=== PATIENT | male | born 1960 | race African-American/Black ===

== ENCOUNTER 2016-08-31 10:39 | Inpatient (IN) | payer OTHER ==
[2016-08-31 10:56] VITALS: BMI 23.1
--- NOTE | 2016-08-31 11:47 | HP ---
CIWA Score - CIWA Score Nausea/Vomitin-Mild Nausea/No Vomiting Muscle Tremors: 4-Moderate,w/Arms Extend Anxiety: 4-Mod. Anxious/Guarded Agitation: 1-Slight > Activity Paroxysmal Sweats: 1-Minimal Palms Moist Orientation: 0-Oriented Tacttile Disturbances: 1-Very Mild Itch/Numbness Auditory Disturbances: 1-Very Mild Visual Disturbances: 1-Very Mild Sensitivity Headache: 1-Very Mild CIWA-Ar Total Score: 15 Admission ROS BHS - HPI Chief Complaint: I'm tired, I can't stop on my own Allergies/Adverse Reactions: Allergies Allergy/AdvReac Type Severity Reaction Status Date / Time No Known Allergies Allergy Verified 08/31/16 12:35 History of Present Illness: 55 yo gentleman here for detox from alcohol - last here march 2016. No seizures but does have black outs. Exam Limitations: Clinical Condition - Ebola screening Have you traveled outside of the country in the last 21 days: No Have you had contact with anyone from an Ebola affected area: No Have you been sick,other than usual withdrawal symptoms: No Do you have a fever: No - Review of Systems Constitutional: Loss of Appetite, Night Sweats, Changes in sleep, Weakness, Unintentional Wgt. Loss EENT: reports: Blurred Vision Respiratory: reports: No Symptoms reported Cardiac: reports: No Symptoms Reported GI: reports: Nausea, Poor Appetite : reports: Frequency Musculoskeletal: reports: Back Pain, Muscle Pain Integumentary: reports: No Symptoms Reported Neuro: reports: Numbness, Tremors Endocrine: reports: No Symptoms Reported Hematology: reports: No Symptoms Reported Psychiatric: reports: Judgement Intact, Mood/Affect Appropiate, Orientated x3, Anxious Other Systems: Reviewed and Negative Patient History - Patient Medical History Hx Anemia: No Hx Asthma: No Hx Chronic Obstructive Pulmonary Disease (COPD): No Hx Cancer: No Hx Cardiac Disorders: No Hx Congestive Heart Failure: No Hx Hypertension: No Hx Hypercholesterolemia: No Hx Pacemaker: No HX Cerebrovascular Accident: No Hx Seizures: No Hx Dementia: No Hx Diabetes: No Hx Gastrointestinal Disorders: No Hx Liver Disease: No Hx Genitourinary Disorders: No Hx Sexually Transmitted Disorders: No Hx Renal Disease (ESRD): No Hx Thyroid Disease: No Hx Human Immunodeficiency Virus (HIV): No Hx Hepatitis C: No Hx Depression: No Hx Suicide Attempt: No Hx Bipolar Disorder: No Hx Schizophrenia: No - Patient Surgical History Past Surgical History: Yes Hx Neurologic Surgery: No Hx Cataract Extraction: No Hx Cardiac Surgery: No Hx Lung Surgery: No Hx Breast Surgery: No Hx Breast Biopsy: No Hx Abdominal Surgery: No Hx Appendectomy: Yes (at age 13 yrs) Hx Cholecystectomy: No Hx Genitourinary Surgery: No Hx Section: No Hx Orthopedic Surgery: No Hx Hysterectomy: No Other Surgical History: h/o rt leg fx Anesthesia Reaction: No - PPD History Date: 04/04/16 Results: 0 mm PPD to be Administered?: No - Reproductive History Patient is a Female of Child Bearing Age (11 -55 yrs old): No (male) - Smoking Cessation Smoking history: Current every day smoker Have you smoked in the past 12 months: Yes Aproximately how many cigarettes per day: 6 Cigars Per Day: 0 Hx Chewing Tobacco Use: No Initiated information on smoking cessation: Yes 'Breaking Loose' booklet given: 08/31/16 (give no floor) - Substance & Tx. History Hx Alcohol Use: Yes Hx Substance Use: Yes Substance Use Type: Alcohol, Cocaine Hx Substance Use Treatment: Yes (detox, rehab) - Substances Abused Alcohol Route: Oral Frequency: Daily Amount used: six pack 16 oz beers; 1 pint liquor Age of first use: 13 Date of Last Use: 08/31/16 Cocaine Route: Smoking Frequency: 1-3 times last 30 days Amount used: $50 Age of first use: 35 Date of Last Use: 08/30/16 Family Disease History - Family Disease History Family Disease History: Diabetes: Mother (alive, ), Brother (1 brother - etoh ) , Respiratory: Father (, ALCOHOLIC), Other: Father, Mother, Brother, Sister (1 sister - alive) Admission Physical Exam [facility] - Vital Signs Vital Signs: Vital Signs - 24 hr 08/31/16 10:54 Temperature 97.8 F Pulse Rate 81 Respiratory 20 Rate Blood Pressure 148/80 - Physical General Appearance: Yes: Nourished, Appropriately Dressed, Mild Distress, Tremorous HEENTM: Yes: Hearing grossly Normal, Normal ENT Inspection, Normocephalic, Normal Voice, Pharynx Normal Respiratory: Yes: Normal Breath Sounds, No Respiratory Distress Neck: Yes: No masses,lesions,Nodules, Supple Breast: Yes: Breast Exam Deferred Cardiology: Yes: Regular Rhythm, Regular Rate Abdominal: Yes: Soft Genitourinary: Yes: Frequency Back: Yes: Normal Inspection Musculoskeletal: Yes: full range of Motion, Gait Steady Extremities: Yes: Normal Inspection, Normal Range of Motion, Non-Tender Neurological: Yes: Fully Oriented, Alert, Normal Mood/Affect, Normal Response, Numbness Integumentary: Yes: Normal Color, Dry, Warm Lymphatic: Yes: Within Normal Limits - Diagnostic (1) Alcohol abuse with uncomplicated intoxication Current Visit: Yes Status: Chronic (2) Nicotine dependence Current Visit: Yes Status: Chronic Qualifiers: Nicotine product type: cigarettes Substance use status: uncomplicated Qualified Code(s): F17.210 - Nicotine dependence, cigarettes, uncomplicated (3) Osteoarthritis of hips, bilateral Current Visit: Yes Status: Chronic Qualifiers: Osteoarthritis type: unspecified Qualified Code(s): M16.0 - Bilateral primary osteoarthritis of hip Cleared for Admission [facility] - Detox or Rehab [facility] Level of Care: Medically Managed Detox Regimen/Protocol: Librium [facility] Breath Alcohol Content Breath Alcohol Content: 0 Urine Drug Screen - Results Drug Screen Negative: No Urine Drug Screen Results: JOHN-Cocaine
[2016-08-31] MEDS ORDERED: hydrOXYzine PAMOATE 50 MG CAPSULE (FP) PO PRN (11:52)
[2016-08-31] MEDS ORDERED: chlordiazePOXIDE HCL 25 MG CAPSULE PO PRN (11:52)
[2016-08-31] MEDS ORDERED: chlordiazePOXIDE HCL 25 MG CAPSULE PO ONE (11:52)
[2016-08-31] MEDS ORDERED: MAG HYDROX/AL HYDROX/SIMETH 30 ML UNIT-DOSE CUP PO PRN (11:52)
[2016-08-31] MEDS ORDERED: NICOTINE POLACRILEX 4 MG GUM BUC PRN (11:52)
[2016-08-31] MEDS ORDERED: ACETAMINOPHEN 325 MG TABLET (FP) PO PRN (11:52)
[2016-08-31] MEDS ORDERED: IBUPROFEN 400 MG TABLET (FP) PO PRN (11:52)
[2016-08-31] MEDS ORDERED: LOPERAMIDE HCL 2 MG CAPSULE PO PRN (11:52)
[2016-08-31] MEDS ORDERED: diphenhydrAMINE HCL 50 MG CAPSULE PO PRN (11:52)
[2016-08-31] MEDS ORDERED: MAGNESIUM HYDROX 2400MG/30ML ORAL SUSPENSION 30 ML CUP PO PRN (11:52)
[2016-08-31] MEDS ORDERED: MAGNESIUM CITRATE 300 ML BOTTLE PO PRN (11:52)
[2016-08-31] MEDS ORDERED: guaiFENesin/D-METHORPHAN HB 10 ML UNIT-DOSE CUPS PO PRN (11:52)
[2016-08-31] MEDS ORDERED: MENTHOL/PHENOL 1 EACH UD MM PRN (11:52)
[2016-08-31] MEDS ORDERED: P-EPHED 60MG/TRIPROLIDI 2.5MG TABLET PO PRN (11:52)
[2016-08-31 17:23] LABS: URINE APPEARANCE CLEAR; URINE BILIRUBIN NEGATIVE (NEGATIVE); URINE COLOR YELLOW; URINE GLUCOSE (UA) NEGATIVE (NEGATIVE); URINE KETONE TRACE (NEGATIVE); URINE LEUK ESTERASE NEGATIVE (NEGATIVE); URINE NITRITE NEGATIVE (NEGATIVE); URINE PROTEIN NEGATIVE (NEGATIVE); URINE UROBILINOGEN NEGATIVE E.U./dl (0.2-1.0)
[2016-08-31 17:24] LABS: URINE BLOOD 1+ (NEGATIVE)
[2016-08-31 17:26] LABS: URINE MUCUS RARE; URINE WBC 1 /hpf (3-5)
[2016-08-31] MEDS: chlordiazePOXIDE HCL 25 MG CAPSULE PO SCH ×2 (17:55→23:23)
[2016-08-31] MEDS: THIAMINE HCL 100 MG TABLET (FP) PO SCH (22:55)
[2016-09-01] MEDS: chlordiazePOXIDE HCL 25 MG CAPSULE PO SCH ×4 (05:50→22:23)
[2016-09-01] MEDS: PRENATAL VITAMINS W/ FOLIC ACID TABLET (FP) PO SCH (10:34)
[2016-09-01 10:46] LABS: MCH 29.2 pg (25.7-33.7); MCHC 32.8 g/dl (32.0-35.9); MEAN CELL VOLUME 88.9 fl (80-96); MEAN PLT VOLUME 9.6 fl (7.5-11.1); PLATELET COUNT 261 K/MM3 (134-434); RDW 13.9 % (11.9-15.9); WHITE BLOOD COUNT 11.4 K/mm3 (4.0-10.0)
[2016-09-01 11:06] LABS: ALBUMIN 3.4 g/dl (3.4-5.0); ANION GAP 8 (8-16); CALCIUM 8.9 mg/dL (8.5-10.1); CO2 29 mmol/L (21-32); GLUCOSE,RANDOM 81 mg/dL (74-106)
[2016-09-01 11:11] LABS: ALK PHOS 60 U/L (45-117); BILIRUBIN,TOTAL 1.3 mg/dL (0.2-1.0); COCKROFT - GAULT 107.09; CREATININE 0.9 mg/dL (0.7-1.3); SGOT/AST 14 U/L (15-37); SGPT/ALT 19 U/L (12-78); TOT PROT 6.8 g/dl (6.4-8.2)
[2016-09-01 12:07] LABS: HIV 1 & 2 AB NEGATIVE; HIV 1 AGp24 NEGATIVE
--- NOTE | 2016-09-01 12:42 | PN ---
S CIWA - CIWA Score Nausea/Vomitin Muscle Tremors: 3 Anxiety: 3 Agitation: 2 Paroxysmal Sweats: 1-Minimal Palms Moist Orientation: 0-Oriented Tacttile Disturbances: 1-Very Mild Itch/Numbness Auditory Disturbances: 1-Very Mild Visual Disturbances: 1-Very Mild Sensitivity Headache: 2-Mild CIWA-Ar Total Score: 17 BHS Progress Note (SOAP) Subjective: ALERT,IRRITABLE,ANXIOUS,INTERRUPTED SLEEP,TREMOR Objective: 09/01/16 12:40 Vital Signs Temperature 98.1 F 09/01/16 10:39 Pulse Rate 86 09/01/16 10:39 Respiratory Rate 16 09/01/16 10:39 Blood Pressure 141/68 09/01/16 10:39 O2 Sat by Pulse Oximetry (%) EKG SINUS BRADYCARDIA 56/MIN NO CHEST PAIN,NO SOB,NO DIZZINESS 09/01/16 12:41 Laboratory Last Values WBC 11.4 K/mm3 (4.0-10.0) H D 09/01/16 08:00 RBC 5.04 M/mm3 (4.00-5.60) 09/01/16 08:00 Hgb 14.7 GM/dL (11.7-16.9) 09/01/16 08:00 Hct 44.8 % (35.4-49) 09/01/16 08:00 MCV 88.9 fl (80-96) 09/01/16 08:00 MCHC 32.8 g/dl (32.0-35.9) 09/01/16 08:00 RDW 13.9 % (11.9-15.9) 09/01/16 08:00 Plt Count 261 K/MM3 (134-434) 09/01/16 08:00 MPV 9.6 fl (7.5-11.1) 09/01/16 08:00 Sodium 145 mmol/L (136-145) 09/01/16 08:00 Potassium 4.9 mmol/L (3.5-5.1) 09/01/16 08:00 Chloride 108 mmol/L (98-107) H 09/01/16 08:00 Carbon Dioxide 29 mmol/L (21-32) 09/01/16 08:00 Anion Gap 8 (8-16) 09/01/16 08:00 BUN 13 mg/dL (7-18) 09/01/16 08:00 Creatinine 0.9 mg/dL (0.7-1.3) 09/01/16 08:00 Creat Clearance w eGFR > 60 (>60) 09/01/16 08:00 Random Glucose 81 mg/dL (74-106) D 09/01/16 08:00 Calcium 8.9 mg/dL (8.5-10.1) 09/01/16 08:00 Total Bilirubin 1.3 mg/dL (0.2-1.0) H 09/01/16 08:00 AST 14 U/L (15-37) L D 09/01/16 08:00 ALT 19 U/L (12-78) D 09/01/16 08:00 Alkaline Phosphatase 60 U/L (45-117) 09/01/16 08:00 Total Protein 6.8 g/dl (6.4-8.2) 09/01/16 08:00 Albumin 3.4 g/dl (3.4-5.0) 09/01/16 08:00 Urine Color Yellow 08/31/16 17:09 Urine Appearance Clear 08/31/16 17:09 Urine pH 5.0 (5.0-8.0) 08/31/16 17:09 Ur Specific [place] 1.020 (1.001-1.035) 08/31/16 17:09 Urine Protein Negative (NEGATIVE) 08/31/16 17:09 Urine Glucose (UA) Negative (NEGATIVE) 08/31/16 17:09 Urine Ketones Trace (NEGATIVE) H 08/31/16 17:09 Urine Blood 1+ (NEGATIVE) H 08/31/16 17:09 Urine Nitrite Negative (NEGATIVE) 08/31/16 17:09 Urine Bilirubin Negative (NEGATIVE) 08/31/16 17:09 Urine Urobilinogen Negative E.U./dl (0.2-1.0) 08/31/16 17:09 Ur Leukocyte Esterase Negative (NEGATIVE) 08/31/16 17:09 Urine RBC None /hpf (0-3) 08/31/16 17:09 Urine WBC 1 /hpf (3-5) 08/31/16 17:09 Urine Mucus Rare 08/31/16 17:09 RPR Titer Nonreactive (NONREACTIVE) 09/01/16 08:00 HIV 1&2 Antibody Screen Negative 09/01/16 08:00 HIV P24 Antigen Negative 09/01/16 08:00 Assessment: 09/01/16 12:42 WITHDRAWAL SYMPTOM Plan: CONTINUE DETOX,ENCOURAGE ORAL FLUID
[2016-09-01] MEDS ORDERED: COLLOIDAL OATMEAL 1 BAR EACH TP PRN (15:01)
[2016-09-01] MEDS: THIAMINE HCL 100 MG TABLET (FP) PO SCH (22:23)
--- NOTE | 2016-09-02 08:46 | EKG ---
Test Reason : Blood Pressure : / mmHG Vent. Rate : 053 BPM Atrial Rate : 053 BPM P-R Int : 126 ms QRS Dur : 088 ms QT Int : 440 ms P-R-T Axes : 077 067 054 degrees QTc Int : 412 ms SINUS BRADYCARDIA SEPTAL INFARCT , AGE UNDETERMINED ABNORMAL ECG WHEN COMPARED WITH ECG OF 08-NOV-2013 12:48, NO SIGNIFICANT CHANGE WAS FOUND Confirmed by DARYA PACHECO MD ([id number]) on 09/02/2016 8:46:20 AM Referred By: Confirmed By:DARYA PACHECO MD
--- NOTE | 2016-09-02 09:57 | PN ---
S CIWA - CIWA Score Nausea/Vomitin Muscle Tremors: 3 Anxiety: 2 Agitation: 2 Paroxysmal Sweats: 1-Minimal Palms Moist Orientation: 0-Oriented Tacttile Disturbances: 1-Very Mild Itch/Numbness Auditory Disturbances: 1-Very Mild Visual Disturbances: 1-Very Mild Sensitivity Headache: 2-Mild CIWA-Ar Total Score: 16 BHS Progress Note (SOAP) Subjective: ALERT,IRRITABLE,ANXIOUS,INTERRUPTED SLEEP,TREMOR Objective: 09/02/16 09:56 Vital Signs Temperature 97.9 F 09/02/16 06:00 Pulse Rate 62 09/02/16 06:00 Respiratory Rate 16 09/02/16 06:00 Blood Pressure 117/66 09/02/16 06:00 O2 Sat by Pulse Oximetry (%) Assessment: 09/02/16 09:56 WITHDRAWAL SYMPTOM Plan: CONTINUE DETOX
[2016-09-02] MEDS: chlordiazePOXIDE HCL 25 MG CAPSULE PO SCH (10:21)
[2016-09-02] MEDS: PRENATAL VITAMINS W/ FOLIC ACID TABLET (FP) PO SCH (10:21)
[2016-09-02] MEDS: chlordiazePOXIDE 5 MG CAPSULE PO SCH ×2 (17:55→23:29)
[2016-09-02] MEDS: THIAMINE HCL 100 MG TABLET (FP) PO SCH (22:55)
[2016-09-03] MEDS: chlordiazePOXIDE 5 MG CAPSULE PO SCH ×2 (06:32→11:29)
--- NOTE | 2016-09-03 09:40 | PN ---
S Progress Note (SOAP) Subjective: ALERT,IRRITABLE,ANXIOUS,INTERRUPTED SLEEP Objective: 09/03/16 09:39 Vital Signs Temperature 97.5 F L 09/03/16 06:06 Pulse Rate 62 09/03/16 06:06 Respiratory Rate 16 09/03/16 06:06 Blood Pressure 106/67 09/03/16 06:06 O2 Sat by Pulse Oximetry (%) Assessment: 09/03/16 09:39 WITHDRAWAL SYMPTOM Plan: CONTINUE DETOX,DISCHARGE IN AM
[2016-09-03] MEDS: PRENATAL VITAMINS W/ FOLIC ACID TABLET (FP) PO SCH (11:30)
[2016-09-03] MEDS: chlordiazePOXIDE HCL 25 MG CAPSULE PO SCH (16:59)
[2016-09-03] MEDS ORDERED: chlordiazePOXIDE HCL 10 MG CAPSULE PO SCH (17:00)
[2016-09-03] MEDS: THIAMINE HCL 100 MG TABLET (FP) PO SCH (22:11)
[2016-09-03 23:14] VITALS: BP 104/69; PULSE 84; TEMP 97.1
--- NOTE | 2016-09-04 08:34 | PN ---
S Progress Note (SOAP) Subjective: ALERT,NO COMPLAINT Objective: 09/04/16 08:32 Vital Signs Temperature 97.1 F L 09/03/16 23:13 Pulse Rate 84 09/03/16 23:13 Respiratory Rate 18 09/04/16 03:30 Blood Pressure 104/69 09/03/16 23:13 O2 Sat by Pulse Oximetry (%) Assessment: 09/04/16 08:33 DETOX COMPLETED,NO WITHDRAWAL SYMPTOM Plan: DISCHARGE TODAY,FOLLOW UP WITH AFTER CARE PROGRAM ARRANGEMENT
--- NOTE | 2016-09-04 08:38 | DS ---
[facility] Detox Discharge Summary Admission Date: 08/31/16 Discharge Date: 09/04/16 - History Present History: Alcohol Dependence Pertinent Past History: NICOTINE DEPENDENCE OSTEOARTHRITIS BOTH HIPS - Physical Exam Results Vital Signs: Vital Signs Temperature 97.1 F L 09/03/16 23:13 Pulse Rate 84 09/03/16 23:13 Respiratory Rate 18 09/04/16 03:30 Blood Pressure 104/69 09/03/16 23:13 O2 Sat by Pulse Oximetry (%) - Treatment Patient has Accepted a Rehab Referral to: DECLINED - Medication Discharge Medications: Ambulatory Orders NK [No Known Home Medication] 12/29/13 - Diagnosis (1) Alcohol abuse with uncomplicated intoxication Current Visit: Yes Status: Chronic (2) Nicotine dependence Current Visit: Yes Status: Chronic Qualifiers: Nicotine product type: cigarettes Substance use status: uncomplicated Qualified Code(s): F17.210 - Nicotine dependence, cigarettes, uncomplicated (3) Osteoarthritis of hips, bilateral Current Visit: Yes Status: Chronic Qualifiers: Osteoarthritis type: unspecified Qualified Code(s): M16.0 - Bilateral primary osteoarthritis of hip
== END 2016-09-04 09:05 | disposition home or self-care (01) | DRG 775 ==
LOC: YASAS 10:39 → Y6N 14:37
PROVIDERS: ADMIT Internal Medicine; ATTEND Internal Medicine Addiction Medicine
PROC: HZ2ZZZZ Detoxification Services for Substance Abuse Treatment (ICD-10-PCS; principal; 2016-09-04)
DX: F10.230 Alcohol dependence with withdrawal, uncomplicated (principal); F17.210 Nicotine dependence, cigarettes, uncomplicated; M16.0 Bilateral primary osteoarthritis of hip
CPT/HCPCS: 36415; 80053; 81003; 81015; 85027; 86593; 87389; 93005; 93010

== ENCOUNTER 2016-12-06 13:14 | Emergency (ER) | payer OTHER ==
[2016-12-06 13:20] VITALS: BP 111/67; PULSE 86; TEMP 97.7; BMI 25.7
--- NOTE | 2016-12-06 13:49 | PDOC ---
History of Present Illness - General Chief Complaint: Foreign Body (FB) Stated Complaint: eye discomfort Time Seen by Provider: 12/06/16 13:38 History Source: Patient Exam Limitations: No Limitations - History of Present Illness Initial Comments: 12/06/16 14:22 Patient came to emergency department with complaints of left eye pain and foreign body sensation. 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 States washed it out without relief, but is progressively worsened, went to an resource program teacher today who noted foreign body and sent to emergency department for evaluation. Patient denies visual changes, however states had some thick drainage this morning with some crusting shut. No other injury 12/06/16 14:37 12/06/16 15:54 Timing/Duration: reports: getting worse Severity: reports: moderate (left eye) Associated Symptoms: reports: denies symptoms Past History - Travel Traveled outside of the country in the last 30 days: No Close contact w/someone who was outside of country & ill: No - Past Medical History Allergies/Adverse Reactions: Allergies Allergy/AdvReac Type Severity Reaction Status Date / Time No Known Allergies Allergy Verified 12/06/16 13:20 Home Medications: Ambulatory Orders NK [No Known Home Medication] 12/29/13 Anemia: No Asthma: No Cancer: No Cardiac Disorders: No CVA: No COPD: No CHF: No Dementia: No Diabetes: No GI Disorders: No Disorders: No HTN: No Hypercholesterolemia: No Kidney Stones: No Liver Disease: No Suicide Attempt (Hx): No Seizures: No Thyroid Disease: No - Surgical History Abdominal Surgery: No Appendectomy: Yes (at age 13 yrs) Cardiac Surgery: No Cholecystectomy: No Lung Surgery: No Neurologic Surgery: No Orthopedic Surgery: No - Reproductive History Testicular Surgery: No - Psycho/Social/Smoking Cessation Hx Anxiety: No Suicidal Ideation: No Smoking History: Current every day smoker Have you smoked in the past 12 months: Yes Number of Cigarettes Smoked Daily: 5 Cigars Per Day: 0 Information on smoking cessation initiated: Yes 'Breaking Loose' booklet given: 12/06/16 Hx Alcohol Use: No Drug/Substance Use Hx: No Substance Use Type: None Hx Substance Use Treatment: Yes (detox, rehab) Respiratory Specific PMHX - Complaint Specific PMHX Pneumonia: No TB (Tuberculosis): No Review of Systems - Review of Systems Able to Perform ROS?: Yes Is the patient limited Thai proficient: Yes Constitutional: Yes: See HPI. No: Symptoms Reported HEENTM: Yes: Symptoms Reported, See HPI, Eye Pain, Blurred Vision, Tearing ( with drainage this am) All Other Systems: Reviewed and Negative *Physical Exam - Vital Signs Last Vital Signs Temp Pulse Resp BP Pulse Ox 97.7 F 86 18 111/67 100 12/06/16 13:18 12/06/16 13:18 12/06/16 13:18 12/06/16 13:18 12/06/16 13:18 - Physical Exam Comments: 12/06/16 14:38 General Appearance: Yes: Nourished, Appropriately Dressed, Apparent Distress HEENT: positive: EOMI, ALEX, Normal ENT Inspection, TMs Normal, Pharynx Normal, Other (left cornea with foreign body noted approximately 3 mm x 2 mm at 1:00 on cornea. No hyphema, no conjunctivitis noted.) Neck: positive: Supple. negative: Tender, Lymphadenopathy (R), Lymphadenopathy (L) Respiratory/Chest: positive: Lungs Clear Gastrointestinal/Abdominal: positive: Soft Integumentary: positive: Normal Color Neurologic: positive: child attendant II-XII NML intact, Fully Oriented, Alert, Normal Mood/ Affect, Normal Response, Motor Strength 5/5 Progress Note - Progress Note Progress Note: Left eye with noted foreign body at 1:00 at [place] approximately 3 mm x 2 mm. Questionable hematoma as opposed to foreign body. Unable to swipe with Q- tip. Discussed case with Dr. Mann's office will see him now at their office. *DC/Admit/Observation/Transfer Diagnosis at time of Disposition: Corneal FB (foreign body) Qualifiers: Encounter type: initial encounter Laterality: left Qualified Code(s): T15.02XA - Foreign body in cornea, left eye, initial encounter - Discharge Dispostion Disposition: HOME Condition at time of disposition: Stable Admit: No - Referrals Referrals: Yessenia Aguilar MD [Primary Care Provider] - Price Olsen MD [Staff Physician] - - Patient Instructions Printed Discharge Instructions: DI for Corneal Foreign Body-Eye Additional Instructions: Go directly to Dr Venegas office For evaluation - Post Discharge Activity Work/School Note: Back to Work
[2016-12-06] MEDS ORDERED: ERYTHROMYCIN 0.5% OPHTHALMIC OINTMENT 3.5 GM TUBE ONE (14:04)
== END 2016-12-06 14:33 | disposition home or self-care (01) ==
LOC: JERFT 13:14
DX: T15.02XA Foreign body in cornea, left eye, initial encounter (principal); X58.XXXA Exposure to other specified factors, initial encounter; Y93.89 Activity, other specified; Y92.9 Unspecified place or not applicable; Y99.0 Civilian activity done for income or pay; F17.210 Nicotine dependence, cigarettes, uncomplicated
CPT/HCPCS: 99281-25

== ENCOUNTER 2017-01-04 10:11 | Inpatient (IN) | payer OTHER ==
[2017-01-04 10:28] VITALS: BMI 23.1
--- NOTE | 2017-01-04 12:12 | HP ---
CIWA Score - CIWA Score Nausea/Vomitin-Mild Nausea/No Vomiting Muscle Tremors: 4-Moderate,w/Arms Extend Anxiety: 4-Mod. Anxious/Guarded Agitation: 1-Slight > Activity Paroxysmal Sweats: 1-Minimal Palms Moist Orientation: 0-Oriented Tacttile Disturbances: 1-Very Mild Itch/Numbness Auditory Disturbances: 1-Very Mild Visual Disturbances: 1-Very Mild Sensitivity Headache: 1-Very Mild CIWA-Ar Total Score: 15 Admission ROS BHS - HPI Chief Complaint: I need to get it together, stop drinking Allergies/Adverse Reactions: Allergies Allergy/AdvReac Type Severity Reaction Status Date / Time No Known Allergies Allergy Verified 01/04/17 13:49 History of Present Illness: 56 yo gentleman here for detox from alcohol - history of previous detox and rehab, no seizures but does have black outs. Exam Limitations: Clinical Condition - Ebola screening Have you traveled outside of the country in the last 21 days: No Have you had contact with anyone from an Ebola affected area: No Have you been sick,other than usual withdrawal symptoms: No Do you have a fever: No - Review of Systems Constitutional: Loss of Appetite, Malaise, Night Sweats, Changes in sleep EENT: reports: Blurred Vision Respiratory: reports: No Symptoms reported Cardiac: reports: No Symptoms Reported GI: reports: No Symptoms Reported : reports: Frequency Musculoskeletal: reports: No Symptoms Reported Integumentary: reports: No Symptoms Reported Neuro: reports: Headache, Tremors Endocrine: reports: No Symptoms Reported Hematology: reports: No Symptoms Reported Psychiatric: reports: Judgement Intact, Mood/Affect Appropiate, Orientated x3, Anxious Other Systems: Reviewed and Negative Patient History - Patient Medical History Hx Anemia: No Hx Asthma: No Hx Chronic Obstructive Pulmonary Disease (COPD): No Hx Cancer: No Hx Cardiac Disorders: No Hx Congestive Heart Failure: No Hx Hypertension: No Hx Hypercholesterolemia: No Hx Pacemaker: No HX Cerebrovascular Accident: No Hx Seizures: No Hx Dementia: No Hx Diabetes: No Hx Gastrointestinal Disorders: No Hx Liver Disease: No Hx Genitourinary Disorders: No Hx Sexually Transmitted Disorders: No Hx Renal Disease (ESRD): No Hx Thyroid Disease: No Hx Human Immunodeficiency Virus (HIV): No Hx Hepatitis C: No Hx Depression: No Hx Suicide Attempt: No Hx Bipolar Disorder: No Hx Schizophrenia: No Other Medical History: hip arthritis - Patient Surgical History Past Surgical History: Yes Hx Neurologic Surgery: No Hx Cataract Extraction: No Hx Cardiac Surgery: No Hx Lung Surgery: No Hx Breast Surgery: No Hx Breast Biopsy: No Hx Abdominal Surgery: No Hx Appendectomy: Yes (at age 13 yrs) Hx Cholecystectomy: No Hx Genitourinary Surgery: No Hx Section: No Hx Orthopedic Surgery: No Hx Hysterectomy: No Other Surgical History: h/o rt leg fx Anesthesia Reaction: No - PPD History Previous Implant?: Yes Documented Results: Negative w/proof Date: 04/04/16 Results: 0 mm PPD to be Administered?: No - Reproductive History Patient is a Female of Child Bearing Age (11 -55 yrs old): No (male) - Smoking Cessation Smoking history: Current every day smoker Have you smoked in the past 12 months: Yes Aproximately how many cigarettes per day: 20 Cigars Per Day: 0 Hx Chewing Tobacco Use: No Initiated information on smoking cessation: Yes 'Breaking Loose' booklet given: 01/04/17 - Substance & Tx. History Hx Alcohol Use: Yes Hx Substance Use: Yes Substance Use Type: Alcohol, Cocaine Hx Substance Use Treatment: Yes (detox, [facility]ab) - Substances Abused Alcohol Route: Oral Frequency: Daily Amount used: 3 pint liquor Age of first use: 14 Date of Last Use: 01/04/17 Cocaine Route: Smoking Frequency: 1-2 times per week Amount used: $30 Age of first use: 30 Date of Last Use: 01/02/17 Family Disease History - Family Disease History Family Disease History: Diabetes: Mother (alive, ), Brother (1 brother - etoh ) , Respiratory: Father (, ALCOHOLIC), Other: Father, Mother, Brother, Sister (1 sister - alive), Son (son age 16 - healthy), Daughter (2 - ages 18, 29 - healthy) Admission Physical Exam BHS - Vital Signs Vital Signs: Vital Signs - 24 hr 01/04/17 10:23 Temperature 97.5 F L Pulse Rate 70 Respiratory 18 Rate Blood Pressure 118/73 - Physical General Appearance: Yes: Nourished, Appropriately Dressed, Mild Distress HEENTM: Yes: Hearing grossly Normal, Normocephalic, Normal Voice Respiratory: Yes: Normal Breath Sounds, No Respiratory Distress Neck: Yes: No masses,lesions,Nodules, Supple Breast: Yes: Breast Exam Deferred Cardiology: Yes: Regular Rhythm, Regular Rate Abdominal: Yes: Soft Genitourinary: Yes: Frequency Back: Yes: Normal Inspection Musculoskeletal: Yes: Gait Steady Extremities: Yes: Normal Inspection Neurological: Yes: Fully Oriented, Alert, Normal Mood/Affect Integumentary: Yes: Normal Color, Warm Lymphatic: Yes: Within Normal Limits - Diagnostic (1) Osteoarthritis of hips, bilateral Current Visit: Yes Status: Chronic Qualifiers: Osteoarthritis type: unspecified Qualified Code(s): M16.0 - Bilateral primary osteoarthritis of hip (2) Alcohol dependence with uncomplicated withdrawal Current Visit: Yes Status: Chronic Cleared for Admission [facility] - Detox or Rehab [facility] Level of Care: Medically Managed Detox Regimen/Protocol: Librium [facility] Breath Alcohol Content Breath Alcohol Content: 0.072 Urine Drug Screen - Results Drug Screen Negative: No Urine Drug Screen Results: JOHN-Cocaine
[2017-01-04] MEDS ORDERED: MENTHOL/PHENOL 1 EACH UD MM PRN (12:21)
[2017-01-04] MEDS ORDERED: hydrOXYzine PAMOATE 50 MG CAPSULE (FP) PO PRN (12:21)
[2017-01-04] MEDS ORDERED: LOPERAMIDE HCL 2 MG CAPSULE PO PRN (12:21)
[2017-01-04] MEDS ORDERED: MAGNESIUM HYDROX 2400MG/30ML ORAL SUSPENSION 30 ML CUP PO PRN (12:21)
[2017-01-04] MEDS ORDERED: MAGNESIUM CITRATE 300 ML BOTTLE PO PRN (12:21)
[2017-01-04] MEDS ORDERED: IBUPROFEN 400 MG TABLET (FP) PO PRN (12:21)
[2017-01-04] MEDS ORDERED: MAG HYDROX/AL HYDROX/SIMETH 30 ML UNIT-DOSE CUP PO PRN (12:21)
[2017-01-04] MEDS ORDERED: diphenhydrAMINE HCL 50 MG CAPSULE PO PRN (12:21)
[2017-01-04] MEDS ORDERED: chlordiazePOXIDE HCL 25 MG CAPSULE PO PRN (12:21)
[2017-01-04] MEDS ORDERED: ACETAMINOPHEN 325 MG TABLET (FP) PO PRN (12:21)
[2017-01-04] MEDS ORDERED: guaiFENesin/D-METHORPHAN HB 10 ML UNIT-DOSE CUPS PO PRN (12:21)
[2017-01-04] MEDS ORDERED: chlordiazePOXIDE HCL 25 MG CAPSULE PO ONE (15:00)
[2017-01-04] MEDS: chlordiazePOXIDE HCL 25 MG CAPSULE PO SCH ×2 (18:06→22:58)
[2017-01-04] MEDS: THIAMINE HCL 100 MG TABLET (FP) PO SCH (22:57)
[2017-01-04 23:22] LABS: URINE APPEARANCE SLCLOUDY; URINE BILIRUBIN NEGATIVE (NEGATIVE); URINE BLOOD NEGATIVE (NEGATIVE); URINE COLOR YELLOW; URINE GLUCOSE (UA) NEGATIVE (NEGATIVE); URINE KETONE NEGATIVE (NEGATIVE); URINE LEUK ESTERASE NEGATIVE (NEGATIVE); URINE NITRITE NEGATIVE (NEGATIVE); URINE PROTEIN NEGATIVE (NEGATIVE); URINE UROBILINOGEN NEGATIVE mg/dL (0.2-1.0)
[2017-01-05] MEDS: chlordiazePOXIDE HCL 25 MG CAPSULE PO SCH ×4 (06:24→22:06)
[2017-01-05 10:29] LABS: MCH 30.2 pg (25.7-33.7); MEAN CELL VOLUME 88.6 fl (80-96); MEAN PLT VOLUME 10.7 fl (7.5-11.1); PLATELET COUNT 192 K/MM3 (134-434); RDW 13.7 % (11.9-15.9); WHITE BLOOD COUNT 5.3 K/mm3 (4.0-10.0)
[2017-01-05] MEDS: PRENATAL VITAMINS W/ FOLIC ACID TABLET (FP) PO SCH (10:32)
[2017-01-05 10:59] LABS: ALBUMIN 3.2 g/dl (3.4-5.0); ANION GAP 4 (8-16); CO2 31 mmol/L (21-32); CREATININE 1.1 mg/dL (0.7-1.3); GLUCOSE,RANDOM 84 mg/dL (74-106); SGOT/AST 14 U/L (15-37); SGPT/ALT 22 U/L (12-78)
[2017-01-05 11:01] LABS: ALK PHOS 50 U/L (45-117); BILIRUBIN,TOTAL 0.6 mg/dL (0.2-1.0); CALCIUM 8.4 mg/dL (8.5-10.1); TOT PROT 6.1 g/dl (6.4-8.2)
--- NOTE | 2017-01-05 12:54 | EKG ---
Test Reason : Blood Pressure : / mmHG Vent. Rate : 050 BPM Atrial Rate : 050 BPM P-R Int : 128 ms QRS Dur : 086 ms QT Int : 434 ms P-R-T Axes : 051 072 055 degrees QTc Int : 395 ms SINUS BRADYCARDIA MINIMAL VOLTAGE CRITERIA FOR LVH, MAY BE NORMAL VARIANT BORDERLINE ECG WHEN COMPARED WITH ECG OF 31-AUG-2016 14:37, CRITERIA FOR SEPTAL INFARCT ARE NO LONGER PRESENT Confirmed by NOLVIA MADERA, PANCHO ([id number]) on 01/05/2017 12:53:55 PM Referred By: Confirmed By:PANCHO DE SOUZA MD
--- NOTE | 2017-01-05 16:10 | PN ---
S CIWA - CIWA Score Nausea/Vomitin Muscle Tremors: 4-Moderate,w/Arms Extend Anxiety: 4-Mod. Anxious/Guarded Agitation: 3 Paroxysmal Sweats: 3 Orientation: 0-Oriented Tacttile Disturbances: 0-None Auditory Disturbances: 0-None Visual Disturbances: 0-None Headache: 2-Mild CIWA-Ar Total Score: 19 S Progress Note (SOAP) Subjective: Nausea, tremor, chills, anxious, interrupted sleep, sweating Objective: 01/05/17 16:07 Last Vital Signs Temp Pulse Resp BP Pulse Ox 98.1 F 68 18 125/83 01/05/17 13:49 01/05/17 13:49 01/05/17 13:49 01/05/17 13:49 Laboratory Tests 01/04/17 01/05/17 01/05/17 23:10 07:45 07:45 WBC 5.3 D RBC 4.67 Hgb 14.1 Hct 41.4 MCV 88.6 MCH 30.2 MCHC 34.0 RDW 13.7 Plt Count 192 D MPV 10.7 D Sodium 142 Potassium 4.6 Chloride 107 Carbon Dioxide 31 Anion Gap 4 L BUN 16 D Creatinine 1.1 D Creat Clearance w eGFR > 60 Random Glucose 84 Calcium 8.4 L Total Bilirubin 0.6 D AST 14 L ALT 22 Alkaline Phosphatase 50 Total Protein 6.1 L Albumin 3.2 L Urine Color Yellow Urine Appearance Slcloudy Urine pH 5.0 Ur Specific [place] 1.025 Urine Protein Negative Urine Glucose (UA) Negative Urine Ketones Negative Urine Blood Negative Urine Nitrite Negative Urine Bilirubin Negative Urine Urobilinogen Negative Ur Leukocyte Esterase Negative RPR Titer 01/05/17 07:45 WBC RBC Hgb Hct MCV MCH MCHC RDW Plt Count MPV Sodium Potassium Chloride Carbon Dioxide Anion Gap BUN Creatinine Creat Clearance w eGFR Random Glucose Calcium Total Bilirubin AST ALT Alkaline Phosphatase Total Protein Albumin Urine Color Urine Appearance Urine pH Ur Specific [place] Urine Protein Urine Glucose (UA) Urine Ketones Urine Blood Urine Nitrite Urine Bilirubin Urine Urobilinogen Ur Leukocyte Esterase RPR Titer Nonreactive Labs noted Assessment: 01/05/17 16:15 Withdrawal symptoms Plan: Continue detox
[2017-01-05] MEDS: THIAMINE HCL 100 MG TABLET (FP) PO SCH (22:05)
[2017-01-06] MEDS: chlordiazePOXIDE HCL 25 MG CAPSULE PO SCH ×2 (06:09→10:44)
--- NOTE | 2017-01-06 09:01 | PN ---
S CIWA - CIWA Score Nausea/Vomitin-No Nausea/No Vomiting Muscle Tremors: 3 Anxiety: 3 Agitation: 2 Paroxysmal Sweats: 2 Orientation: 0-Oriented Tacttile Disturbances: 0-None Auditory Disturbances: 0-None Visual Disturbances: 0-None Headache: 0-None Present CIWA-Ar Total Score: 10 BHS Progress Note (SOAP) Subjective: Anxiety,tremors,sweating,interrupted sleep. Objective: 01/06/17 09:00 Vital Signs - 8 hr 01/06/17 01/06/17 03:53 06:15 Temperature 97 F L Pulse Rate 58 L Respiratory 18 18 Rate Blood Pressure 114/75 Laboratory Tests 01/04/17 01/05/17 01/05/17 23:10 07:45 07:45 WBC 5.3 D RBC 4.67 Hgb 14.1 Hct 41.4 MCV 88.6 MCH 30.2 MCHC 34.0 RDW 13.7 Plt Count 192 D MPV 10.7 D Sodium 142 Potassium 4.6 Chloride 107 Carbon Dioxide 31 Anion Gap 4 L BUN 16 D Creatinine 1.1 D Creat Clearance w eGFR > 60 Random Glucose 84 Calcium 8.4 L Total Bilirubin 0.6 D AST 14 L ALT 22 Alkaline Phosphatase 50 Total Protein 6.1 L Albumin 3.2 L Urine Color Yellow Urine Appearance Slcloudy Urine pH 5.0 Ur Specific [place] 1.025 Urine Protein Negative Urine Glucose (UA) Negative Urine Ketones Negative Urine Blood Negative Urine Nitrite Negative Urine Bilirubin Negative Urine Urobilinogen Negative Ur Leukocyte Esterase Negative RPR Titer 01/05/17 07:45 WBC RBC Hgb Hct MCV MCH MCHC RDW Plt Count MPV Sodium Potassium Chloride Carbon Dioxide Anion Gap BUN Creatinine Creat Clearance w eGFR Random Glucose Calcium Total Bilirubin AST ALT Alkaline Phosphatase Total Protein Albumin Urine Color Urine Appearance Urine pH Ur Specific [place] Urine Protein Urine Glucose (UA) Urine Ketones Urine Blood Urine Nitrite Urine Bilirubin Urine Urobilinogen Ur Leukocyte Esterase RPR Titer Nonreactive labs noted Assessment: 01/06/17 09:00 Withdrawal sx. Plan: Continue detox
[2017-01-06] MEDS: PRENATAL VITAMINS W/ FOLIC ACID TABLET (FP) PO SCH (10:43)
[2017-01-06] MEDS: P-EPHED 60MG/TRIPROLIDI 2.5MG TABLET PO PRN ×2 (10:46→20:23)
[2017-01-06] MEDS: chlordiazePOXIDE 5 MG CAPSULE PO SCH ×2 (17:02→22:43)
[2017-01-06] MEDS: THIAMINE HCL 100 MG TABLET (FP) PO SCH (22:43)
[2017-01-07] MEDS: chlordiazePOXIDE 5 MG CAPSULE PO SCH ×2 (06:02→10:17)
[2017-01-07] MEDS: PRENATAL VITAMINS W/ FOLIC ACID TABLET (FP) PO SCH (10:17)
[2017-01-07] MEDS: P-EPHED 60MG/TRIPROLIDI 2.5MG TABLET PO PRN ×2 (10:18→21:16)
--- NOTE | 2017-01-07 11:18 | PN ---
BHS Progress Note (SOAP) Subjective: ALERT O X 3. OOB AMBULATING ON HALLWAY. NAD BUT SLIGHTLY FATIGUE Objective: 01/07/17 11:18 Vital Signs Temperature 96.7 F L 01/07/17 09:39 Pulse Rate 77 01/07/17 09:39 Respiratory Rate 18 01/07/17 09:39 Blood Pressure 113/74 01/07/17 09:39 O2 Sat by Pulse Oximetry (%) Laboratory Last Values WBC 5.3 K/mm3 (4.0-10.0) D 01/05/17 07:45 RBC 4.67 M/mm3 (4.00-5.60) 01/05/17 07:45 Hgb 14.1 GM/dL (11.7-16.9) 01/05/17 07:45 Hct 41.4 % (35.4-49) 01/05/17 07:45 MCV 88.6 fl (80-96) 01/05/17 07:45 MCH 30.2 pg (25.7-33.7) 01/05/17 07:45 MCHC 34.0 g/dl (32.0-35.9) 01/05/17 07:45 RDW 13.7 % (11.9-15.9) 01/05/17 07:45 Plt Count 192 K/MM3 (134-434) D 01/05/17 07:45 MPV 10.7 fl (7.5-11.1) D 01/05/17 07:45 Sodium 142 mmol/L (136-145) 01/05/17 07:45 Potassium 4.6 mmol/L (3.5-5.1) 01/05/17 07:45 Chloride 107 mmol/L (98-107) 01/05/17 07:45 Carbon Dioxide 31 mmol/L (21-32) 01/05/17 07:45 Anion Gap 4 (8-16) L 01/05/17 07:45 BUN 16 mg/dL (7-18) D 01/05/17 07:45 Creatinine 1.1 mg/dL (0.7-1.3) D 01/05/17 07:45 Creat Clearance w eGFR > 60 (>60) 01/05/17 07:45 Random Glucose 84 mg/dL (74-106) 01/05/17 07:45 Calcium 8.4 mg/dL (8.5-10.1) L 01/05/17 07:45 Total Bilirubin 0.6 mg/dL (0.2-1.0) D 01/05/17 07:45 AST 14 U/L (15-37) L 01/05/17 07:45 ALT 22 U/L (12-78) 01/05/17 07:45 Alkaline Phosphatase 50 U/L (45-117) 01/05/17 07:45 Total Protein 6.1 g/dl (6.4-8.2) L 01/05/17 07:45 Albumin 3.2 g/dl (3.4-5.0) L 01/05/17 07:45 Urine Color Yellow 01/04/17 23:10 Urine Appearance Slcloudy 01/04/17 23:10 Urine pH 5.0 (5.0-8.0) 01/04/17 23:10 Ur Specific [place] 1.025 (1.005-1.025) 01/04/17 23:10 Urine Protein Negative (NEGATIVE) 01/04/17 23:10 Urine Glucose (UA) Negative (NEGATIVE) 01/04/17 23:10 Urine Ketones Negative (NEGATIVE) 01/04/17 23:10 Urine Blood Negative (NEGATIVE) 01/04/17 23:10 Urine Nitrite Negative (NEGATIVE) 01/04/17 23:10 Urine Bilirubin Negative (NEGATIVE) 01/04/17 23:10 Urine Urobilinogen Negative mg/dL (0.2-1.0) 01/04/17 23:10 Ur Leukocyte Esterase Negative (NEGATIVE) 01/04/17 23:10 RPR Titer Nonreactive (NONREACTIVE) 01/05/17 07:45 Assessment: 01/07/17 11:18 WITHDRAWAL SX Plan: CONTINUE DETOX
[2017-01-07] MEDS: chlordiazePOXIDE HCL 10 MG CAPSULE PO SCH ×2 (17:27→22:45)
[2017-01-07] MEDS: THIAMINE HCL 100 MG TABLET (FP) PO SCH (22:45)
[2017-01-07 22:57] VITALS: BP 117/71; PULSE 77; TEMP 98.7
--- NOTE | 2017-01-08 11:24 | DS ---
[facility] Detox Discharge Summary Admission Date: 01/04/17 Discharge Date: 01/08/17 - History Present History: Alcohol Dependence, Cocaine Dependence Additional Comments: PT COMPLETED DETOX. DISCHARGED EARLIER TODAY. PT TO FOLLOW UP AT [facility]. Pertinent Past History: OSTEOARTHRITIS LIPOMA BACK HX PREMATURE COMPLEX,ATRIAL - Physical Exam Results Vital Signs: Vital Signs Temperature 98.7 F 01/07/17 22:56 Pulse Rate 77 01/07/17 22:56 Respiratory Rate 18 01/08/17 00:30 Blood Pressure 117/71 01/07/17 22:56 O2 Sat by Pulse Oximetry (%) Pertinent Admission Physical Exam Findings: WITHDAWAL SX Laboratory Last Values WBC 5.3 K/mm3 (4.0-10.0) D 01/05/17 07:45 RBC 4.67 M/mm3 (4.00-5.60) 01/05/17 07:45 Hgb 14.1 GM/dL (11.7-16.9) 01/05/17 07:45 Hct 41.4 % (35.4-49) 01/05/17 07:45 MCV 88.6 fl (80-96) 01/05/17 07:45 MCH 30.2 pg (25.7-33.7) 01/05/17 07:45 MCHC 34.0 g/dl (32.0-35.9) 01/05/17 07:45 RDW 13.7 % (11.9-15.9) 01/05/17 07:45 Plt Count 192 K/MM3 (134-434) D 01/05/17 07:45 MPV 10.7 fl (7.5-11.1) D 01/05/17 07:45 Sodium 142 mmol/L (136-145) 01/05/17 07:45 Potassium 4.6 mmol/L (3.5-5.1) 01/05/17 07:45 Chloride 107 mmol/L (98-107) 01/05/17 07:45 Carbon Dioxide 31 mmol/L (21-32) 01/05/17 07:45 Anion Gap 4 (8-16) L 01/05/17 07:45 BUN 16 mg/dL (7-18) D 01/05/17 07:45 Creatinine 1.1 mg/dL (0.7-1.3) D 01/05/17 07:45 Creat Clearance w eGFR > 60 (>60) 01/05/17 07:45 Random Glucose 84 mg/dL (74-106) 01/05/17 07:45 Calcium 8.4 mg/dL (8.5-10.1) L 01/05/17 07:45 Total Bilirubin 0.6 mg/dL (0.2-1.0) D 01/05/17 07:45 AST 14 U/L (15-37) L 01/05/17 07:45 ALT 22 U/L (12-78) 01/05/17 07:45 Alkaline Phosphatase 50 U/L (45-117) 01/05/17 07:45 Total Protein 6.1 g/dl (6.4-8.2) L 01/05/17 07:45 Albumin 3.2 g/dl (3.4-5.0) L 01/05/17 07:45 Urine Color Yellow 01/04/17 23:10 Urine Appearance Slcloudy 01/04/17 23:10 Urine pH 5.0 (5.0-8.0) 01/04/17 23:10 Ur Specific [place] 1.025 (1.005-1.025) 01/04/17 23:10 Urine Protein Negative (NEGATIVE) 01/04/17 23:10 Urine Glucose (UA) Negative (NEGATIVE) 01/04/17 23:10 Urine Ketones Negative (NEGATIVE) 01/04/17 23:10 Urine Blood Negative (NEGATIVE) 01/04/17 23:10 Urine Nitrite Negative (NEGATIVE) 01/04/17 23:10 Urine Bilirubin Negative (NEGATIVE) 01/04/17 23:10 Urine Urobilinogen Negative mg/dL (0.2-1.0) 01/04/17 23:10 Ur Leukocyte Esterase Negative (NEGATIVE) 01/04/17 23:10 RPR Titer Nonreactive (NONREACTIVE) 01/05/17 07:45 - Treatment Hospital Course: Detox Protocol Followed, Detoxed Safely, Responded well, Discharged Condition Good - Medication Discharge Medications: Ambulatory Orders NK [No Known Home Medication] 12/29/13 - Diagnosis (1) Alcohol dependence with uncomplicated withdrawal Status: Chronic (2) Nicotine dependence Status: Acute Qualifiers: Nicotine product type: cigarettes Substance use status: in withdrawal Qualified Code(s): F17.213 - Nicotine dependence, cigarettes, with withdrawal (3) Cocaine dependence, uncomplicated Status: Acute (4) Osteoarthritis of hips, bilateral Status: Chronic Qualifiers: Osteoarthritis type: unspecified Qualified Code(s): M16.0 - Bilateral primary osteoarthritis of hip - AMA Did Patient Leave Against Medical Advice: No
== END 2017-01-08 07:10 | disposition home or self-care (01) | DRG 774 ==
LOC: YASAS 10:11 → Y3N 14:25
PROVIDERS: ADMIT Internal Medicine; ATTEND Internal Medicine
PROC: HZ2ZZZZ Detoxification Services for Substance Abuse Treatment (ICD-10-PCS; principal; 2017-01-08)
DX: F10.230 Alcohol dependence with withdrawal, uncomplicated (principal); F14.23 Cocaine dependence with withdrawal; F17.213 Nicotine dependence, cigarettes, with withdrawal; M16.0 Bilateral primary osteoarthritis of hip
CPT/HCPCS: 36415; 80053; 81003; 85027; 86593; 93005; 93010

== ENCOUNTER 2017-05-27 10:57 | Inpatient (IN) | payer OTHER ==
[2017-05-27 11:20] VITALS: BMI 24.3
--- NOTE | 2017-05-27 14:49 | HP ---
CIWA Score - CIWA Score Nausea/Vomitin-No Nausea/No Vomiting Muscle Tremors: 4-Moderate,w/Arms Extend Anxiety: 4-Mod. Anxious/Guarded Agitation: 4-Moderately Restless Paroxysmal Sweats: 3 Orientation: 0-Oriented Tacttile Disturbances: 0-None Auditory Disturbances: 0-None Visual Disturbances: 0-None Headache: 1-Very Mild CIWA-Ar Total Score: 16 Admission ROS BHS - HPI Chief Complaint: I am here to detox. Allergies/Adverse Reactions: Allergies Allergy/AdvReac Type Severity Reaction Status Date / Time No Known Allergies Allergy Verified 01/04/17 13:49 History of Present Illness: pt is a 56yr old male with a history of alcohol dependence seeking detox for treatment. Exam Limitations: No Limitations - Ebola screening Have you traveled outside of the country in the last 21 days: No Have you had contact with anyone from an Ebola affected area: No Have you been sick,other than usual withdrawal symptoms: No Do you have a fever: No - Review of Systems Constitutional: Chills, Diaphoresis, Loss of Appetite, Changes in sleep EENT: reports: No Symptoms Reported Respiratory: reports: No Symptoms reported Cardiac: reports: No Symptoms Reported GI: reports: Poor Appetite, Poor Fluid Intake : reports: Other (hestitency) Musculoskeletal: reports: Back Pain, Joint Pain Integumentary: reports: Flushing, Sweating Neuro: reports: Headache, Tingling, Tremors Endocrine: reports: Excessive Sweating, Flushing, Intolerance to Cold, Intolerance to Heat Hematology: reports: No Symptoms Reported Psychiatric: reports: Judgement Intact, Mood/Affect Appropiate, Orientated x3, Agitated, Anxious Other Systems: Reviewed and Negative Patient History - Patient Medical History Hx Anemia: No Hx Asthma: No Hx Chronic Obstructive Pulmonary Disease (COPD): No Hx Cancer: No Hx Cardiac Disorders: No Hx Congestive Heart Failure: No Hx Hypertension: No Hx Hypercholesterolemia: No Hx Pacemaker: No HX Cerebrovascular Accident: No Hx Seizures: No Hx Dementia: No Hx Diabetes: No Hx Gastrointestinal Disorders: No Hx Liver Disease: No Hx Genitourinary Disorders: No Hx Sexually Transmitted Disorders: No Hx Renal Disease (ESRD): No Hx Thyroid Disease: No Hx Human Immunodeficiency Virus (HIV): No (negative) Hx Hepatitis C: No (negative) Hx Depression: No Hx Suicide Attempt: No (denies) Hx Bipolar Disorder: No Hx Schizophrenia: No - Patient Surgical History Past Surgical History: Yes Hx Neurologic Surgery: No Hx Cataract Extraction: No Hx Cardiac Surgery: No Hx Lung Surgery: No Hx Breast Surgery: No Hx Breast Biopsy: No Hx Abdominal Surgery: No Hx Appendectomy: Yes (at age 13 yrs) Hx Cholecystectomy: No Hx Genitourinary Surgery: No Hx Section: No Hx Orthopedic Surgery: No Hx Hysterectomy: No Other Surgical History: h/o rt leg fx Anesthesia Reaction: No - PPD History Previous Implant?: Yes Documented Results: Negative w/proof Date: 04/04/16 Results: 0 mm PPD to be Administered?: Yes - Reproductive History Patient is a Female of Child Bearing Age (11 -55 yrs old): No - Smoking Cessation Smoking history: Current every day smoker Have you smoked in the past 12 months: Yes Aproximately how many cigarettes per day: 5 Cigars Per Day: 0 Hx Chewing Tobacco Use: No Initiated information on smoking cessation: Yes 'Breaking Loose' booklet given: 05/27/17 - Substance & Tx. History Hx Alcohol Use: Yes Hx Substance Use: Yes Substance Use Type: Alcohol, Cocaine, Marijuana Hx Substance Use Treatment: Yes (last detox [facility] 2017) - Substances Abused Alcohol Route: Oral Frequency: Daily Amount used: 2 pints of tom/5 cans of beer Age of first use: 15 Date of Last Use: 05/27/17 Marijuana/Hashish Route: Smoking Frequency: Daily Amount used: 3 blunts Age of first use: 17 Date of Last Use: 05/27/17 Cocaine Route: Inhalation Frequency: 1-3 times last 30 days Amount used: $50 Age of first use: 28 Date of Last Use: 05/26/17 Family Disease History - Family Disease History Family Disease History: Diabetes: Mother (alive, ), Brother (1 brother - etoh ) , Respiratory: Father (, ALCOHOLIC), Other: Father, Mother, Brother, Sister (1 sister - alive), Son (son age 16 - healthy), Daughter (2 - ages 18, 29 - healthy) Admission Physical Exam BHS - Vital Signs Vital Signs: Vital Signs - 24 hr 05/27/17 11:18 Temperature 98.1 F Pulse Rate 87 Respiratory 18 Rate Blood Pressure 124/77 - Physical General Appearance: Yes: Appropriately Dressed, Moderate Distress, Tremorous, Irritable, Sweating, Anxious HEENTM: Yes: Normal Voice, Nasal Congestion, Rhinorrhea Respiratory: Yes: Lungs Clear, Normal Breath Sounds, No Respiratory Distress Neck: Yes: No masses,lesions,Nodules Breast: Yes: Within Normal Limits Cardiology: Yes: Regular Rhythm, Regular Rate, S1, S2 Abdominal: Yes: Normal Bowel Sounds, Non Tender, Soft Genitourinary: Yes: Within Normal Limits Back: Yes: Normal Inspection Musculoskeletal: Yes: Gait Steady, Back pain Extremities: Yes: Normal Capillary Refill, Normal Inspection, Tremors Neurological: Yes: Fully Oriented, Alert, Normal Response Integumentary: Yes: Normal Color, Diaphoresis Lymphatic: Yes: Within Normal Limits - Diagnostic (1) Cocaine dependence, uncomplicated Current Visit: Yes Status: Chronic (2) Nicotine dependence Current Visit: Yes Status: Chronic Qualifiers: Nicotine product type: cigarettes Substance use status: uncomplicated Qualified Code(s): F17.210 - Nicotine dependence, cigarettes, uncomplicated (3) Osteoarthritis of hips, bilateral Current Visit: No Status: Chronic Qualifiers: (4) Alcohol dependence with uncomplicated withdrawal Current Visit: Yes Status: Chronic Cleared for Admission [facility] - Detox or Rehab [facility] Level of Care: Medically Managed Detox Regimen/Protocol: Librium [facility] Breath Alcohol Content Breath Alcohol Content: 0 Urine Drug Screen - Results Drug Screen Negative: No Urine Drug Screen Results: THC-Marijuana, JOHN-Cocaine
[2017-05-27] MEDS ORDERED: MAG HYDROX/AL HYDROX/SIMETH 30 ML UNIT-DOSE CUP PO PRN (14:51)
[2017-05-27] MEDS ORDERED: IBUPROFEN 400 MG TABLET (FP) PO PRN (14:51)
[2017-05-27] MEDS ORDERED: MENTHOL/PHENOL 1 EACH UD MM PRN (14:51)
[2017-05-27] MEDS ORDERED: hydrOXYzine PAMOATE 50 MG CAPSULE (FP) PO PRN (14:51)
[2017-05-27] MEDS ORDERED: guaiFENesin/D-METHORPHAN HB 10 ML UNIT-DOSE CUPS PO PRN (14:51)
[2017-05-27] MEDS ORDERED: NICOTINE POLACRILEX 2 MG GUM BUC PRN (14:51)
[2017-05-27] MEDS ORDERED: MAGNESIUM HYDROX 2400MG/30ML ORAL SUSPENSION 30 ML CUP PO PRN (14:51)
[2017-05-27] MEDS ORDERED: chlordiazePOXIDE HCL 25 MG CAPSULE PO PRN (14:51)
[2017-05-27] MEDS ORDERED: MAGNESIUM CITRATE 300 ML BOTTLE PO PRN (14:51)
[2017-05-27] MEDS ORDERED: P-EPHED 60MG/TRIPROLIDI 2.5MG TABLET PO PRN (14:51)
[2017-05-27] MEDS ORDERED: ACETAMINOPHEN 325 MG TABLET (FP) PO PRN (14:51)
[2017-05-27] MEDS ORDERED: LOPERAMIDE HCL 2 MG CAPSULE PO PRN (14:51)
[2017-05-27] MEDS ORDERED: chlordiazePOXIDE HCL 25 MG CAPSULE PO ONE (15:26)
[2017-05-27] MEDS: chlordiazePOXIDE HCL 25 MG CAPSULE PO SCH ×2 (17:36→23:03)
--- NOTE | 2017-05-27 17:38 | PN ---
BHS Progress Note Note: RECEIVED NURSE CALL THAT THE PATIENT NEEDS PPD
[2017-05-27 18:05] LABS: URINE APPEARANCE CLEAR; URINE BILIRUBIN NEGATIVE (NEGATIVE); URINE BLOOD NEGATIVE (NEGATIVE); URINE COLOR YELLOW; URINE GLUCOSE (UA) NEGATIVE (NEGATIVE); URINE KETONE 1+ (NEGATIVE); URINE LEUK ESTERASE NEGATIVE (NEGATIVE); URINE NITRITE NEGATIVE (NEGATIVE); URINE PROTEIN NEGATIVE (NEGATIVE); URINE UROBILINOGEN NEGATIVE mg/dL (0.2-1.0)
[2017-05-27] MEDS: THIAMINE HCL 100 MG TABLET (FP) PO SCH (23:02)
[2017-05-28] MEDS: chlordiazePOXIDE HCL 25 MG CAPSULE PO SCH ×4 (06:09→22:45)
--- NOTE | 2017-05-28 09:38 | EKG ---
Test Reason : Blood Pressure : / mmHG Vent. Rate : 061 BPM Atrial Rate : 061 BPM P-R Int : 136 ms QRS Dur : 088 ms QT Int : 402 ms P-R-T Axes : 055 073 053 degrees QTc Int : 404 ms NORMAL SINUS RHYTHM WITH SINUS ARRHYTHMIA MINIMAL VOLTAGE CRITERIA FOR LVH, MAY BE NORMAL VARIANT BORDERLINE ECG WHEN COMPARED WITH ECG OF 04-JAN-2017 14:13, NO SIGNIFICANT CHANGE WAS FOUND Confirmed by MERCY MADERA, CYRIL ([id number]) on 05/28/2017 9:38:44 AM Referred By: Confirmed By:CYRIL MADRID MD
[2017-05-28] MEDS ORDERED: NICOTINE 7 MG/24 HOURS TOPICAL PATCH TD SCH (10:00)
[2017-05-28] MEDS ORDERED: PRENATAL VITAMINS W/ FOLIC ACID TABLET (FP) PO SCH (10:00)
[2017-05-28 10:18] LABS: HEMATOCRIT 44.2 % (35.4-49); HEMOGLOBIN 14.3 GM/dL (11.7-16.9); MCH 28.9 pg (25.7-33.7); MCHC 32.3 g/dl (32.0-35.9); MEAN CELL VOLUME 89.3 fl (80-96); MEAN PLT VOLUME 10.5 fl (7.5-11.1); PLATELET COUNT 190 K/MM3 (134-434); RBC 4.95 M/mm3 (4.00-5.60); RDW 14.2 % (11.9-15.9); WHITE BLOOD COUNT 9.9 K/mm3 (4.0-10.0)
[2017-05-28 10:24] LABS: CHLORIDE 104 mmol/L (98-107); POTASSIUM 4.1 mmol/L (3.5-5.1); SODIUM 138 mmol/L (136-145)
[2017-05-28 10:31] LABS: ALBUMIN 3.7 g/dl (3.4-5.0); ALK PHOS 61 U/L (45-117); ANION GAP 8 (8-16); BILIRUBIN,TOTAL 2.1 mg/dL (0.2-1.0); BLOOD UREA NITROGEN 24 mg/dL (7-18); CALCIUM 8.9 mg/dL (8.5-10.1); CO2 26 mmol/L (21-32); CREATININE 1.3 mg/dL (0.7-1.3); GLUCOSE,RANDOM 175 mg/dL (74-106); SGOT/AST 53 U/L (15-37); SGPT/ALT 47 U/L (12-78); TOT PROT 6.9 g/dl (6.4-8.2)
--- NOTE | 2017-05-28 13:05 | PN ---
[facility] CIWA - CIWA Score Nausea/Vomitin-No Nausea/No Vomiting Muscle Tremors: 4-Moderate,w/Arms Extend Anxiety: 4-Mod. Anxious/Guarded Agitation: 4-Moderately Restless Paroxysmal Sweats: 1-Minimal Palms Moist Orientation: 0-Oriented Tacttile Disturbances: 3-Moderate Itch/Numb/Burn Auditory Disturbances: 0-None Visual Disturbances: 0-None Headache: 0-None Present CIWA-Ar Total Score: 16 BHS Progress Note (SOAP) Subjective: ANXIETY,SWEATS,TREMORS,FATIGUE. Objective: 05/28/17 13:02 Vital Signs Temperature 97.7 F 05/28/17 10:10 Pulse Rate 77 05/28/17 10:10 Respiratory Rate 18 05/28/17 10:10 Blood Pressure 128/83 05/28/17 10:10 O2 Sat by Pulse Oximetry (%) Laboratory Last Values WBC 9.9 K/mm3 (4.0-10.0) D 05/28/17 06:00 RBC 4.95 M/mm3 (4.00-5.60) 05/28/17 06:00 Hgb 14.3 GM/dL (11.7-16.9) 05/28/17 06:00 Hct 44.2 % (35.4-49) 05/28/17 06:00 MCV 89.3 fl (80-96) 05/28/17 06:00 MCH 28.9 pg (25.7-33.7) 05/28/17 06:00 MCHC 32.3 g/dl (32.0-35.9) 05/28/17 06:00 RDW 14.2 % (11.9-15.9) 05/28/17 06:00 Plt Count 190 K/MM3 (134-434) 05/28/17 06:00 MPV 10.5 fl (7.5-11.1) 05/28/17 06:00 Sodium 138 mmol/L (136-145) 05/28/17 06:00 Potassium 4.1 mmol/L (3.5-5.1) 05/28/17 06:00 Chloride 104 mmol/L (98-107) 05/28/17 06:00 Carbon Dioxide 26 mmol/L (21-32) 05/28/17 06:00 Anion Gap 8 (8-16) 05/28/17 06:00 BUN 24 mg/dL (7-18) H D 05/28/17 06:00 Creatinine 1.3 mg/dL (0.7-1.3) 05/28/17 06:00 Creat Clearance w eGFR 57.10 (>60) 05/28/17 06:00 Random Glucose 175 mg/dL (74-106) H D 05/28/17 06:00 Calcium 8.9 mg/dL (8.5-10.1) 05/28/17 06:00 Total Bilirubin 2.1 mg/dL (0.2-1.0) H D 05/28/17 06:00 AST 53 U/L (15-37) H D 05/28/17 06:00 ALT 47 U/L (12-78) D 05/28/17 06:00 Alkaline Phosphatase 61 U/L (45-117) D 05/28/17 06:00 Total Protein 6.9 g/dl (6.4-8.2) 05/28/17 06:00 Albumin 3.7 g/dl (3.4-5.0) 05/28/17 06:00 Urine Color Yellow 05/27/17 15:00 Urine Appearance Clear 05/27/17 15:00 Urine pH 5.0 (5.0-8.0) 05/27/17 15:00 Ur Specific [place] 1.015 (1.001-1.035) 05/27/17 15:00 Urine Protein Negative (NEGATIVE) 05/27/17 15:00 Urine Glucose (UA) Negative (NEGATIVE) 05/27/17 15:00 Urine Ketones 1+ (NEGATIVE) H 05/27/17 15:00 Urine Blood Negative (NEGATIVE) 05/27/17 15:00 Urine Nitrite Negative (NEGATIVE) 05/27/17 15:00 Urine Bilirubin Negative (NEGATIVE) 05/27/17 15:00 Urine Urobilinogen Negative mg/dL (0.2-1.0) 05/27/17 15:00 Ur Leukocyte Esterase Negative (NEGATIVE) 05/27/17 15:00 Assessment: 05/28/17 13:02 WITHDRAWAL SX Plan: CONTINUE DETOX
--- NOTE | 2017-05-28 19:21 | PN ---
BHS Progress Note Note: RECEIVED NURSE CALL THAT THE PATIENT REFUSES LIBRIUM 25 MG X 1 DOSE TODAY
[2017-05-28 22:03] VITALS: BP 132/78; PULSE 73; TEMP 97.7
[2017-05-28] MEDS: THIAMINE HCL 100 MG TABLET (FP) PO SCH (22:45)
[2017-05-29] MEDS: chlordiazePOXIDE HCL 25 MG CAPSULE PO SCH (05:20)
--- NOTE | 2017-05-29 07:16 | DS ---
[facility] Detox Discharge Summary Admission Date: 05/27/17 Discharge Date: 05/29/17 - History Present History: Alcohol Dependence, Cocaine Dependence, Sedative Dependence Additional Comments: Patient did not complete detox. This morning, he was disruptive and combative. As per the nurse, patient threw a pitcher of water, garbage and beddings to the floor and was very loud. Security escorted patient off the floor. Pertinent Past History: DVT, osteoarthritis of hips, nicotine dependence, chest pain and lipoma of back - Physical Exam Results Vital Signs: Vital Signs Temperature 97.7 F 05/28/17 22:03 Pulse Rate 73 05/28/17 22:03 Respiratory Rate 18 05/28/17 22:03 Blood Pressure 132/78 05/28/17 22:03 O2 Sat by Pulse Oximetry (%) Laboratory Last Values WBC 9.9 K/mm3 (4.0-10.0) D 05/28/17 06:00 RBC 4.95 M/mm3 (4.00-5.60) 05/28/17 06:00 Hgb 14.3 GM/dL (11.7-16.9) 05/28/17 06:00 Hct 44.2 % (35.4-49) 05/28/17 06:00 MCV 89.3 fl (80-96) 05/28/17 06:00 MCH 28.9 pg (25.7-33.7) 05/28/17 06:00 MCHC 32.3 g/dl (32.0-35.9) 05/28/17 06:00 RDW 14.2 % (11.9-15.9) 05/28/17 06:00 Plt Count 190 K/MM3 (134-434) 05/28/17 06:00 MPV 10.5 fl (7.5-11.1) 05/28/17 06:00 Sodium 138 mmol/L (136-145) 05/28/17 06:00 Potassium 4.1 mmol/L (3.5-5.1) 05/28/17 06:00 Chloride 104 mmol/L (98-107) 05/28/17 06:00 Carbon Dioxide 26 mmol/L (21-32) 05/28/17 06:00 Anion Gap 8 (8-16) 05/28/17 06:00 BUN 24 mg/dL (7-18) H D 05/28/17 06:00 Creatinine 1.3 mg/dL (0.7-1.3) 05/28/17 06:00 Creat Clearance w eGFR 57.10 (>60) 05/28/17 06:00 Random Glucose 175 mg/dL (74-106) H D 05/28/17 06:00 Calcium 8.9 mg/dL (8.5-10.1) 05/28/17 06:00 Total Bilirubin 2.1 mg/dL (0.2-1.0) H D 05/28/17 06:00 AST 53 U/L (15-37) H D 05/28/17 06:00 ALT 47 U/L (12-78) D 05/28/17 06:00 Alkaline Phosphatase 61 U/L (45-117) D 05/28/17 06:00 Total Protein 6.9 g/dl (6.4-8.2) 05/28/17 06:00 Albumin 3.7 g/dl (3.4-5.0) 05/28/17 06:00 Urine Color Yellow 05/27/17 15:00 Urine Appearance Clear 05/27/17 15:00 Urine pH 5.0 (5.0-8.0) 05/27/17 15:00 Ur Specific [place] 1.015 (1.001-1.035) 05/27/17 15:00 Urine Protein Negative (NEGATIVE) 05/27/17 15:00 Urine Glucose (UA) Negative (NEGATIVE) 05/27/17 15:00 Urine Ketones 1+ (NEGATIVE) H 05/27/17 15:00 Urine Blood Negative (NEGATIVE) 05/27/17 15:00 Urine Nitrite Negative (NEGATIVE) 05/27/17 15:00 Urine Bilirubin Negative (NEGATIVE) 05/27/17 15:00 Urine Urobilinogen Negative mg/dL (0.2-1.0) 05/27/17 15:00 Ur Leukocyte Esterase Negative (NEGATIVE) 05/27/17 15:00 RPR Titer Nonreactive (NONREACTIVE) 05/28/17 06:00 Pertinent Admission Physical Exam Findings: Withdrawal symptoms - Medication Discharge Medications: Ambulatory Orders Meloxicam 7.5 mg PO DAILY PRN 05/27/17 - Diagnosis (1) Alcohol dependence with uncomplicated withdrawal Current Visit: Yes Status: Chronic (2) Cocaine dependence, uncomplicated Current Visit: Yes Status: Chronic (3) Nicotine dependence Current Visit: Yes Status: Chronic Qualifiers: Nicotine product type: cigarettes Substance use status: uncomplicated Qualified Code(s): F17.210 - Nicotine dependence, cigarettes, uncomplicated (4) Osteoarthritis of hips, bilateral Current Visit: Yes Status: Chronic Qualifiers: (5) Chest pain Current Visit: No Status: Acute (6) Corneal FB (foreign body) Current Visit: No Status: Acute Qualifiers: Encounter type: initial encounter Laterality: left Qualified Code(s): T15.02XA - Foreign body in cornea, left eye, initial encounter (7) Lipoma of back Current Visit: No Status: Chronic - AMA Did Patient Leave Against Medical Advice: Yes
[2017-05-29] MEDS ORDERED: chlordiazePOXIDE 5 MG CAPSULE PO SCH (17:00)
[2017-05-30] MEDS ORDERED: chlordiazePOXIDE HCL 10 MG CAPSULE PO SCH (17:00)
== END 2017-05-29 06:15 | disposition home or self-care (01) | DRG 774 ==
LOC: YASAS 10:57 → Y3N 15:08
PROVIDERS: ADMIT Internal Medicine; ATTEND Internal Medicine
PROC: HZ2ZZZZ Detoxification Services for Substance Abuse Treatment (ICD-10-PCS; principal; 2017-05-27)
DX: F10.230 Alcohol dependence with withdrawal, uncomplicated (principal); F14.20 Cocaine dependence, uncomplicated; F17.210 Nicotine dependence, cigarettes, uncomplicated; F07.9 Unspecified personality and behavioral disorder due to known physiological condition; M16.0 Bilateral primary osteoarthritis of hip; T15.02XA Foreign body in cornea, left eye, initial encounter; D17.1 Benign lipomatous neoplasm of skin and subcutaneous tissue of trunk; Z86.718 Personal history of other venous thrombosis and embolism; F91.9 Conduct disorder, unspecified
CPT/HCPCS: 36415; 80053; 81003; 85027; 86593; 93005; 93010